=== PATIENT | male | born 1975 | race Caucasian/White ===

== ENCOUNTER 2023-12-13 07:42 | Day surgery (SDC) | payer OTHER ==
[2023-12-10 16:12] VITALS: BMI 34.4
[2023-12-13 09:45] VITALS: BP 117/73; PULSE 65; TEMP 97.8
[2023-12-13 09:46] VITALS: RESP 19
== END 2023-12-13 09:25 | disposition home or self-care (01) ==
LOC: FASU-ENDO 07:42
PROVIDERS: ATTEND Internal Medicine Gastroenterology
PROC: 0DJD8ZZ Inspection of Lower Intestinal Tract, Via Natural or Artificial Opening Endoscopic (ICD-10-PCS; principal; 2023-12-13 08:35)
DX: Z12.11 Encounter for screening for malignant neoplasm of colon (principal)